=== PATIENT | male | born 1990 | race Caucasian/White ===

== ENCOUNTER 2019-02-05 00:41 | Inpatient (IN) | payer MEDICARE ==
[~2019-02-05] VITALS: Ht 177.8 cm; Wt 95.7 kg
[2019-02-05 01:25] LABS: BASOPHILS % (AUTO) 0.5 % (0.0-2.0); EOSINOPHILS % (AUTO) 4.2 % (1.0-6.0); HEMATOCRIT 39.2 % (41-53); HEMOGLOBIN 13.4 g/dL (13.5-17.5); LYMPHOCYTES # (AUTO) 2.5 K/uL (1.0-4.8); LYMPHOCYTES % (AUTO) 24.7 % (22.0-44.0); MEAN CORPUSCULAR HEMOGLOBIN 31.7 pg (26.0-34.0); MEAN CORPUSCULAR HGB CONC 34.1 G/dL (31.0-37.0); MEAN CORPUSCULAR VOLUME 93 fL (80-100); MONOCYTES # (AUTO) 1.2 K/uL (0.1-1.0); NEUTROPHILS % (AUTO) 58.6 % (40.0-70.0); PLATELET COUNT (AUTO) 316 K/uL (150-450); RED BLOOD CELL COUNT(AUTO) 4.22 MIL/uL (4.50-5.90); RED CELL DISTRIBUTION WIDTH 14.1 % (11.5-14.5)
[2019-02-05 01:39] LABS: ANION GAP 12 mmol/L (8-16); CALCIUM, TOTAL 9.4 mg/dL (8.8-10.5); CARBON DIOXIDE 24 mmol/L (22-29); CHLORIDE 103 mmol/L (98-107); CREATININE 0.99 mg/dL (0.60-1.30); GLUCOSE,RANDOM 93 mg/dL (70-110); SODIUM SERUM 139 mmol/L (136-145); UREA NITROGEN, BLOOD 15 mg/dL (7-18)
[2019-02-05 01:41] LABS: GLOMERULAR FILTR. RATE CALC > 60 mL/min (>60)
[2019-02-05 01:45] LABS: ALANINE AMINOTRANSFERASE 56 U/L (12-78); ALBUMIN 4.2 g/dL (3.4-5.0); ALKALINE PHOSPHATASE 72 U/L (46-116); ASPARTATE AMINOTRANSFERASE 137 U/L (15-37); BILIRUBIN,TOTAL 0.5 mg/dL (0.1-1.0); TOTAL PROTEIN, SERUM 7.5 g/dL (6.4-8.2)
[2019-02-05] MEDS ORDERED: SODIUM CHLORIDE 0.9% 1,000 ML IV ONE (01:45)
[2019-02-05 01:55] LABS: ACETAMINOPHEN < 2 mcg/mL (10-30)
[2019-02-05 05:34] LABS: AMPHET/METH SCREEN,URINE NEGATIVE (NEGATIVE); BARBITURATE SCREEN, URINE NEGATIVE (NEGATIVE); BENZODIAZEPINES SCREEN,URINE NEGATIVE (NEGATIVE); CANNABINOID SCREEN,URINE NEGATIVE (NEGATIVE); COCAINE SCREEN,URINE NEGATIVE (NEGATIVE); METHADONE SCREEN, URINE NEGATIVE (NEGATIVE); OPIATE SCREEN,URINE NEGATIVE (NEGATIVE)
[2019-02-05 05:35] LABS: PHENCYCLIDINE SCREEN,URINE NEGATIVE (NEGATIVE)
[2019-02-05] MEDS ORDERED: DiphenhydrAMINE HCL 50 MG/ML VIAL IM ONE (08:00)
[2019-02-05] MEDS ORDERED: LORazepam 2 MG/ML VIAL IM ONE (08:00)
[2019-02-05] MEDS ORDERED: HALOPERIDOL LACTATE 5 MG/ML VIAL IM ONE (08:00)
[2019-02-05] MEDS ORDERED: ZOLPIDEM TARTRATE 10 MG TABLET PO PRN (11:00)
[2019-02-05] MEDS: NICOTINE 21 MG/24 HOUR PATCH TD SCH (14:31)
[2019-02-05 16:02] VITALS: BP 117/64
[2019-02-05] MEDS: QUEtiapine FUMARATE 300 MG TABLET PO SCH (20:43)
[2019-02-05] MEDS: DIVALPROEX SODIUM 500 MG DR TABLET PO SCH (20:43)
[2019-02-05] MEDS: GABAPENTIN 400 MG CAPSULE PO SCH (20:43)
[2019-02-06 06:56] VITALS: BP 123/65
[2019-02-06] MEDS: HALOPERIDOL 5 MG TABLET PO PRN ×2 (07:21→11:32)
[2019-02-06] MEDS: LORazepam 2 MG TABLET PO PRN ×3 (07:21→17:36)
[2019-02-06] MEDS: NICOTINE 21 MG/24 HOUR PATCH TD SCH (08:38)
[2019-02-06] MEDS: QUEtiapine FUMARATE 100 MG TABLET PO SCH (08:38)
[2019-02-06 08:46] VITALS: BP_SYST 145; BP_SYST 94; BP_DIAS 62; BP_DIAS 80
[2019-02-06 11:30] VITALS: BP 128/75
[2019-02-06 16:12] VITALS: BP 129/80
[2019-02-06] MEDS ORDERED: BENZOCAINE/MENTHOL LOZENGE MM PRN (19:45)
[2019-02-06] MEDS ORDERED: MAG HYDROX/AL HYDROX/SIMETH ES 30 ML SUSPENSION UDCUP PO PRN (19:45)
[2019-02-06] MEDS ORDERED: ALBUTEROL SULFATE HFA 90 MCG/PUFF 8 GM INHALER IH PRN (19:45)
[2019-02-06] MEDS ORDERED: MAGNESIUM HYDROXIDE SUSPENSION 30 ML UDCUP PO PRN (19:45)
[2019-02-06] MEDS ORDERED: CloNIDine HCL 0.1 MG TABLET PO PRN (19:45)
[2019-02-06] MEDS ORDERED: LOPERAMIDE HCL 2 MG CAPSULE PO PRN (19:45)
[2019-02-06] MEDS ORDERED: ACETAMINOPHEN 325 MG TABLET PO PRN (19:45)
[2019-02-06] MEDS ORDERED: ONDANSETRON HCL 4 MG TABLET PO PRN (19:45)
[2019-02-06] MEDS ORDERED: IBUPROFEN 600 MG TABLET PO PRN (19:45)
[2019-02-06] MEDS ORDERED: BACITRACIN 28.4 GM OINTMENT TP PRN (19:45)
[2019-02-06] MEDS ORDERED: PETROLATUM,WHITE 28 GM JELLY TP PRN (19:45)
[2019-02-06] MEDS: GABAPENTIN 400 MG CAPSULE PO SCH (20:59)
[2019-02-06] MEDS: QUEtiapine FUMARATE 300 MG TABLET PO SCH (20:59)
[2019-02-06] MEDS: DIVALPROEX SODIUM 500 MG DR TABLET PO SCH (20:59)
[2019-02-07 06:09] VITALS: BP 112/72
[2019-02-07] MEDS: LORazepam 2 MG TABLET PO PRN ×3 (06:37→17:32)
[2019-02-07 08:04] VITALS: BP 140/83
[2019-02-07] MEDS: QUEtiapine FUMARATE 100 MG TABLET PO SCH (08:16)
[2019-02-07] MEDS: NICOTINE 21 MG/24 HOUR PATCH TD SCH (08:22)
[2019-02-07 10:42] LABS: ANION GAP 5 mmol/L (8-16); CALCIUM, TOTAL 9.5 mg/dL (8.8-10.5); CARBON DIOXIDE 29 mmol/L (22-29); CHLORIDE 104 mmol/L (98-107); CREATININE 0.97 mg/dL (0.60-1.30); GLOMERULAR FILTR. RATE CALC > 60 mL/min (>60); GLUCOSE,RANDOM 83 mg/dL (70-110); POTASSIUM 4.9 mmol/L (3.5-5.1); SODIUM SERUM 138 mmol/L (136-145); UREA NITROGEN, BLOOD 12 mg/dL (7-18)
[2019-02-07 16:00] VITALS: BP 136/93
[2019-02-07] MEDS: LACTULOSE 20 GM/30 ML SOLUTION UDCUP PO SCH (16:57)
[2019-02-07] MEDS: HALOPERIDOL 5 MG TABLET PO PRN (17:32)
[2019-02-07] MEDS: DIVALPROEX SODIUM 500 MG DR TABLET PO SCH (20:05)
[2019-02-07] MEDS: GABAPENTIN 400 MG CAPSULE PO SCH (20:05)
[2019-02-07] MEDS: QUEtiapine FUMARATE 300 MG TABLET PO SCH (20:05)
[2019-02-08 06:20] VITALS: BP 135/89
[2019-02-08] MEDS: LORazepam 2 MG TABLET PO PRN (06:27)
[2019-02-08] MEDS: QUEtiapine FUMARATE 100 MG TABLET PO SCH (08:23)
[2019-02-08] MEDS: LACTULOSE 20 GM/30 ML SOLUTION UDCUP PO SCH (08:23)
[2019-02-08] MEDS: NICOTINE 21 MG/24 HOUR PATCH TD SCH (08:25)
[2019-02-08 09:26] VITALS: BP 114/85
[2019-02-08] MEDS ORDERED: GABA-533 PO (12:15)
[2019-02-08] MEDS ORDERED: QUET100T PO (12:15)
[2019-02-08] MEDS ORDERED: DIVA-78 PO (12:15)
[2019-02-08] MEDS ORDERED: QUET300T2 PO (12:15)
[2019-02-08] MEDS ORDERED: LACT30L PO (12:32)
== END 2019-02-08 13:20 | disposition home or self-care (01) | DRG 885 ==
LOC: EDBD 00:43 → EMS 00:43 → B3A 11:53
PROVIDERS: ADMIT Psychiatry & Neurology Psychiatry; ATTEND Psychiatry & Neurology Psychiatry
DX: F25.9 Schizoaffective disorder, unspecified (principal); T54.91XA Toxic effect of unspecified corrosive substance, accidental (unintentional), initial encounter; G47.00 Insomnia, unspecified; F17.200 Nicotine dependence, unspecified, uncomplicated; F12.90 Cannabis use, unspecified, uncomplicated; F41.9 Anxiety disorder, unspecified
CPT/HCPCS: 87081; 96372; 99291; G0480; G0481; J1200; J1630; J2060